=== PATIENT | female | born 1970 | race American Indian/Alaskan Native ===

== ENCOUNTER 2021-01-15 08:35 | Outpatient (CLI) | payer BC ==
--- NOTE | 2021-01-15 10:45 | Ultrasound Report ---
ULTRASOUND-GUIDED CORE NEEDLE BIOPSY Left axilla WITH CLIP PLACEMENT INDICATION: Biopsy-proven left breast cancer, abnormal left axillary lymph node. FINDINGS: Informed consent was obtained. The enlarged lymph node within the left axilla was identified with ult rasound. The overlying skin was cleansed with chloro prep and local anesthesia was obtained with a 1% lidocaine solution. Under ultrasound guidance a 14-gauge spring loaded core biopsy needle was advanc ed to the lesion. A total of 4 core samples were obtained. A U-shaped biopsy marker was placed to mar k the site of the biopsy. Specimen samples were placed in formalin and sent to pathology for analysis . Patient tolerated the procedure well and no immediate complications were identified. A post procedure mammogram was not obtained, although the biopsy marker appears appropriately positioned sonographica lly. IMPRESSION: Technically successful ultrasound-guided core biopsy of left axillary lymph node with placement of a U-shaped biopsy marker. An addendum will be added to this report once pathology results are available. Signer Name: Salvador Guzman MD Signed: 01/15/2021 10:41 AM Workstation Name: [id number]
== END 2021-01-15 08:36 | disposition home or self-care (01) ==
LOC: SPVWC 08:35
PROVIDERS: ATTEND Surgery
DX: R59.9 Enlarged lymph nodes, unspecified (principal); C50.412 Malignant neoplasm of upper-outer quadrant of left female breast
CPT/HCPCS: 38505; 76942; 88305; 88342

== ENCOUNTER 2021-01-22 14:53 | Outpatient (CLI) | payer BC ==
--- NOTE | 2021-01-24 17:12 | Magnetic Resonance Report ---
MRI BREAST BILATERAL WITH AND WITHOUT CONTRAST, 01/22/2021 CLINICAL INFORMATION / INDICATION: BREAST CA C50.212. Left breast cancer. TECHNIQUE: Axial T1 and T2-weighted fat sat images were obtained precontrast. Gadolinium-based contra st was injected intravenously and serial axial T1 weighted images with fat saturation were obtained. 3-D MIP projections, kinetic analysis, and subtraction imaging were utilized to evaluate. A dedicated 8-channel breast coil was used for image acquisition. COMPARISON: Ultrasound-guided biopsy of a left axillary node performed on 01/15/2021. Diagnostic bilate ral mammogram performed on 12/11/2020. FINDINGS: BREAST DENSITY: Heterogeneously dense. BACKGROUND ENHANCEMENT: Moderate background enhancement within both breasts. RIGHT BREAST: No dominant mass or suspicious area of enhancement in the right breast. A nonenlarged i ntramammary node is seen anteriorly in the 10:00 position. Questionable postbiopsy changes versus a p rominent intramammary duct containing debris is seen anteriorly along the 12:00 position on images 32 3 10/10/1936 of series 6 without associated suspicious enhancement. LEFT BREAST: A predominately peripherally enhancing mass is seen in the 11:00 position middle depth m easuring 3.3 x 3.0 cm on image 322 of series 6. The mass is located 3.9 cm from the chest wall, 7 cm from the nipple and 1.7 cm from the nearest skin surface, located medially. No other mass or suspicio us area of enhancement is identified. AXILLAE: The previously biopsied mildly thickened left axillary node is again seen without significan t interval changes. No other significant axillary adenopathy. ADDITIONAL FINDINGS: Limited imaging of the thorax and upper abdomen demonstrates no focal abnormalit y. IMPRESSION: 1. Known left breast cancer as above with a stable mildly thickened prominent left axillary node that has been previously biopsied. 2. No other MRI evidence of malignancy in either breast. 3. Additional findings as above. Follow up recommendation: Surgical consult BI-RADS Category 6: Known Biopsy-Proven Malignancy. Signer Name: Loki Medina MD Signed: 01/24/2021 5:07 PM Workstation Name: [email or web address]
== END 2021-01-22 14:54 | disposition home or self-care (01) ==
LOC: SPVIMAG 14:53
PROVIDERS: ATTEND Surgery
DX: C50.212 Malignant neoplasm of upper-inner quadrant of left female breast (principal); N63.22 Unspecified lump in the left breast, upper inner quadrant
CPT/HCPCS: A9575; C8908; 77049

== ENCOUNTER 2021-04-16 15:38 | Outpatient (CLI) | payer BC ==
--- NOTE | 2021-04-16 17:06 | XRay Report ---
CHEST 2 VIEWS INDICATION: COUGH R05 SHORTNESS OF BREATH R06.02. COMPARISON: None. FINDINGS: Support devices: None. Heart: Within normal limits. Lungs/Pleura: No acute air space or interstitial disease. No significant pleural effusion. IMPRESSION: No acute findings. Signer Name: Surya Alvarez MD Signed: 04/16/2021 5:02 PM Workstation Name: [id number]
== END 2021-04-16 15:39 | disposition home or self-care (01) ==
LOC: SPVIMAG 15:38
PROVIDERS: ATTEND Internal Medicine Hematology & Oncology
DX: Z51.11 Encounter for antineoplastic chemotherapy (principal); C50.212 Malignant neoplasm of upper-inner quadrant of left female breast; E86.0 Dehydration; R05 Cough; R06.02 Shortness of breath; D72.819 Decreased white blood cell count, unspecified; Z32.02 Encounter for pregnancy test, result negative; D64.9 Anemia, unspecified; R11.0 Nausea; R00.0 Tachycardia, unspecified
CPT/HCPCS: 71046